=== PATIENT | female | born 1950 | race African-American/Black ===

== ENCOUNTER 2017-04-02 09:13 | Emergency (ER) | payer MEDICARE, MEDICAID ==
[~2017-04-02] VITALS: Ht 160 cm; Wt 75.0 kg
[~2017-04-02 09:13] MED LIST: CLON1TAB4 PO; FERR-63; IMIT50 PO; LOSA1TAB33 PO; PANT40TA4 PO; PERP8TAB6 PO; SIMV20TA6 PO; TRAZ-132 PO; VERA240C2 PO
[2017-04-02 09:18] VITALS: BP 144/65
[2017-04-02] MEDS ORDERED: TRAZ-132 PO (09:28)
[2017-04-02] MEDS ORDERED: BENZ2TAB7 PO (09:28)
[2017-04-02] MEDS ORDERED: MONT10TA24 PO (09:28)
[2017-04-02] MEDS ORDERED: LORA10TA7 PO (09:28)
[2017-04-02] MEDS ORDERED: PERP8TAB6 PO (09:28)
[2017-04-02] MEDS ORDERED: SIMV20TA6 PO (09:28)
[2017-04-02] MEDS ORDERED: VERA240C2 PO (09:28)
[2017-04-02] MEDS ORDERED: LOSA100T14 PO (09:28)
[2017-04-02] MEDS ORDERED: CLON1TAB4 PO (09:28)
[2017-04-02] MEDS ORDERED: PANT40TA4 PO (09:28)
[2017-04-02] MEDS ORDERED: ALBU2.5V13 IH (09:28)
== END 2017-04-02 10:41 | disposition home or self-care (01) ==
LOC: ER 09:41
DX: H61.21 Impacted cerumen, right ear (principal); I10 Essential (primary) hypertension; E78.00 Pure hypercholesterolemia, unspecified; G43.909 Migraine, unspecified, not intractable, without status migrainosus
CPT/HCPCS: 69210; 99284

== ENCOUNTER 2020-10-23 14:05 | Emergency (ER) | payer MEDICAID, MEDICARE ==
[~2020-10-23] VITALS: Ht 160 cm; Wt 73.0 kg
[~2020-10-23 14:05] MED LIST changes: +ALBU2.5V13 IH; +BENZ2TAB7 PO; +CLON1TAB12 PO; -CLON1TAB4 PO; +LORA10TA7 PO; +LOSA100T32 PO; -LOSA1TAB33 PO; +LOSA1TAB40 PO; +MONT10TA32 PO; -PANT40TA4 PO; +PANT40TA51 PO; +SIMV-43 PO; -SIMV20TA6 PO; -TRAZ-132 PO; +TRAZ-252 PO
[2020-10-23] MEDS ORDERED: IBUP-2029 MT (15:51)
[2020-10-23] MEDS ORDERED: IBUPROFEN 600MG TABLET PO ONE (16:00)
[2020-10-23 16:05] VITALS: BP 171/93
== END 2020-10-23 16:13 | disposition home or self-care (01) ==
LOC: ER 14:05
DX: S90.31XA Contusion of right foot, initial encounter (principal); I10 Essential (primary) hypertension; E78.00 Pure hypercholesterolemia, unspecified; G43.909 Migraine, unspecified, not intractable, without status migrainosus; G62.9 Polyneuropathy, unspecified; Z87.19 Personal history of other diseases of the digestive system; Z90.49 Acquired absence of other specified parts of digestive tract; Z90.710 Acquired absence of both cervix and uterus; W01.0XXA Fall on same level from slipping, tripping and stumbling without subsequent striking against object, initial encounter; Y93.89 Activity, other specified; Y92.018 Other place in single-family (private) house as the place of occurrence of the external cause
CPT/HCPCS: 73630; 99283

== ENCOUNTER 2021-04-08 13:04 | Emergency (ER) | payer MEDICARE ==
[~2021-04-08] VITALS: Ht 160 cm; Wt 71.0 kg
[~2021-04-08 13:04] MED LIST changes: +IBUP-2029 MT
[2021-04-08 14:52] LABS: BASOPHILS % 0.6 % (0.0-2.0); EOSINOPHILS % 3.2 % (0.0-5.0); HEMATOCRIT. 37.7 % (36.0-48.0); HEMOGLOBIN. 12.4 g/dL (12.0-16.0); LYMPHOCYTES % 29.3 % (20.0-50.0); MEAN CORPUSCULAR HEMOGLOBIN 27.8 pg (28.0-32.0); MEAN CORPUSCULAR VOLUME 84.6 fL (81.0-99.0); MEAN PLATELET VOLUME 7.5 fl (7.4-10.4); MONOCYTES % 5.3 % (2.0-8.0); NEUTROPHILS % 61.6 % (40.0-76.0); PLATELET 266 x1000/uL (130-400); RED BLOOD CELL COUNT 4.46 mill/uL (4.2-5.4); RED CELL DISTRIBUTION WIDTH 16.2 % (11.6-14.6)
[2021-04-08 14:55] LABS: CHLORIDE 104 mEq/L (98-107)
[2021-04-08] MEDS ORDERED: CYCLOBENZAPRINE 10MG TABLET PO ONE (16:15)
[2021-04-08] MEDS ORDERED: MORPHINE SULFATE 4 MG/ML CPJ (NOT FOR IM USE) IV NR (18:30)
[2021-04-08] MEDS ORDERED: SODIUM CHLORIDE 0.9% 1,000 ML IV ONE (18:30)
[2021-04-08] MEDS ORDERED: HYDR-4001 MT (19:10)
[2021-04-08 19:15] VITALS: BP 154/78
[2021-04-08] MEDS ORDERED: MORPHINE SULFATE 2 MG/ML CPJ (NOT FOR IM USE) IV NR (19:15)
== END 2021-04-08 19:30 | disposition home or self-care (01) ==
LOC: ER 13:04
DX: M75.02 Adhesive capsulitis of left shoulder (principal); M25.512 Pain in left shoulder; E78.00 Pure hypercholesterolemia, unspecified; I10 Essential (primary) hypertension; Z90.49 Acquired absence of other specified parts of digestive tract; Z98.890 Other specified postprocedural states; Z79.899 Other long term (current) drug therapy
CPT/HCPCS: 36415; 73030; 73060; 73090; 80053; 84484; 85025; 93005; 93971; 96374; 99285; J2270; A4565

== ENCOUNTER 2024-03-28 17:48 | Emergency (ER) | payer MEDICARE, MEDICAID ==
[~2024-03-28] VITALS: Ht 160 cm; Wt 68.0 kg
[~2024-03-28 17:48] MED LIST changes: +BENZ2TAB65 PO; -BENZ2TAB7 PO; +HYDR-4001 MT; -LOSA100T32 PO; +LOSA100T33 PO; +MONT-39 PO; -MONT10TA32 PO
[2024-03-28 18:00] VITALS: O2SAT 96
[2024-03-28] MEDS: ACETAMINOPHEN 325MG TABLET PO ONE (19:38)
[2024-03-28] MEDS ORDERED: TOPUD MT (20:28)
[2024-03-28 20:51] VITALS: BP 159/62; PULSE 88; RESP 18; TEMP 36.55848; O2SAT 97
== END 2024-03-28 20:49 | disposition home or self-care (01) ==
LOC: ER 17:48
DX: M17.11 Unilateral primary osteoarthritis, right knee (principal); I10 Essential (primary) hypertension; E78.00 Pure hypercholesterolemia, unspecified; Z88.6 Allergy status to analgesic agent
CPT/HCPCS: 73560; 93971; 99284

== ENCOUNTER 2024-10-22 20:00 | Emergency (ER) | payer MEDICARE, MEDICAID ==
[~2024-10-22] VITALS: Ht 167.6 cm; Wt 65.0 kg
[~2024-10-22 20:00] MED LIST changes: +TOPUD MT
[2024-10-22 20:19] VITALS: TEMP 36.9
[2024-10-22] MEDS: KETOROLAC 30MG/ML VIAL IM ONE (21:52)
[2024-10-22] MEDS: ACETAMINOPHEN 325MG TABLET PO ONE (21:52)
[2024-10-22] MEDS: EPINEPHRINE 1:1000 1 MG/ML AMP IM ONE (23:46)
[2024-10-23] MEDS: METHYLPREDNISOLONE SOD SUCC 125MG/2ML (ACT-O-VIAL) IV ONE (00:03)
[2024-10-23 00:46] VITALS: PULSE 84; RESP 18; O2SAT 99
[2024-10-23] MEDS: IPRATROPIUM BROMIDE (0.02%) 0.5MG/2.5ML NEB HHN STA (00:46)
[2024-10-23] MEDS: ALBUTEROL (0.083%) 2.5MG/3ML NEB HHN STA (00:47)
[2024-10-23] MEDS: HYDROCODONE/ACETAMINOPHEN 5/325MG TABLET PO ONE (03:53)
[2024-10-23] MEDS ORDERED: ACET-2708 MT (04:00)
[2024-10-23 05:21] VITALS: BP 152/89; PULSE 97; RESP 13; O2SAT 99
== END 2024-10-23 05:29 | disposition home or self-care (01) ==
LOC: ER 20:00
DX: M25.561 Pain in right knee (principal); M25.562 Pain in left knee; T78.2XXA Anaphylactic shock, unspecified, initial encounter; T50.905A Adverse effect of unspecified drugs, medicaments and biological substances, initial encounter; R06.2 Wheezing; E78.00 Pure hypercholesterolemia, unspecified; I10 Essential (primary) hypertension; Z90.710 Acquired absence of both cervix and uterus; Z79.899 Other long term (current) drug therapy; Z88.6 Allergy status to analgesic agent; Y92.89 Other specified places as the place of occurrence of the external cause
CPT/HCPCS: 99291; 96374; 29505; 73562; 96372; 94640; J1885; J2919; J3490; 94070

== ENCOUNTER 2025-02-07 14:40 | Inpatient (IN) | payer MEDICARE, MEDICAID ==
[~2025-02-07] VITALS: Ht 165.1 cm; Wt 66.2 kg
[~2025-02-07 14:40] MED LIST changes: +ACET-2708 MT; +IBUP-1455 MT; -IBUP-2029 MT
[2025-02-07] MEDS ORDERED: DEXAMETHASONE 10 MG/ML VIAL IV ONE (15:00)
[2025-02-07] MEDS ORDERED: ALBUTEROL (0.083%) 2.5MG/3ML NEB HHN SCH ×2 (15:00→17:30)
[2025-02-07] MEDS ORDERED: IPRATROPIUM BROMIDE (0.02%) 0.5MG/2.5ML NEB HHN SCH ×2 (15:00→17:30)
[2025-02-07 15:04] LABS: BASOPHILS % 0.9 % (0.0-2.0); EOSINOPHILS % 6.4 % (0.0-5.0); HEMATOCRIT. 36.3 % (36.0-48.0); HEMOGLOBIN. 12.3 g/dL (12.0-16.0); LYMPHOCYTES % 32.9 % (20.0-50.0); MEAN PLATELET VOLUME 7.7 fl (7.4-10.4); MONOCYTES % 4.9 % (2.0-8.0); NEUTROPHILS % 54.9 % (40.0-76.0); PLATELET 207 x1000/uL (130-400); RED BLOOD CELL COUNT 4.29 mill/uL (4.2-5.4); RED CELL DISTRIBUTION WIDTH 14.6 % (11.6-14.6)
[2025-02-07 15:23] LABS: CREATININE 1.8 mg/dL (0.6-1.0)
[2025-02-07 15:24] LABS: UREA NITROGEN BLOOD 12 mg/dL (9-23)
[2025-02-07 15:25] LABS: ASPARTATE AMINOTRANSFERASE 15 IU/L (<34); BILIRUBIN DIRECT 0.1 mg/dL (<=3.0)
[2025-02-07 15:26] LABS: BILIRUBIN TOTAL 0.5 mg/dL (0.1-1.0); PROTEIN TOTAL 6.6 g/dL (6.0-8.3)
[2025-02-07 15:29] LABS: TROPONIN I HIGH SENSITIVITY 52 ng/L (3.0-34)
[2025-02-07] MEDS: MAGNESIUM 2 G PREMIX 50 ML IV ONE (15:38)
[2025-02-07 15:47] LABS: BG BASE EXCESS -0.5 mmol/L (-2.0-3.0); BG CARBOXYHEMOGLOBIN 0.3 % (0.5-1.5); BG DEOXYHEMOGLOBIN 0.4 % (0.0-5.0); BG FLOW(L/min) 15.00 L/min; BG FRACTION INSPIRED OXYGEN 100; BG HCO3 ACT 23.9 mmol/L (21.0-28.0); BG METHEMOGLOBIN 0.1 % (0.5-1.5); BG OXYGEN SATURATION 99.6 % (94.0-98.0); BG OXYHEMOGLOBIN 99.2 % (94.0-98.0); BG PCO2 38.8 mmHg (32.0-45.0); BG PH 7.408 (7.350-7.450); BG PO2 275.3 mmHg (83.0-108.0); BG SAMPLE SITE LEFT BRACHIAL; BG TOTAL HEMOGLOBIN 12.7 g/dL (12.0-16.0); BG VENT MODE MASK - NRB
[2025-02-07] MEDS ORDERED: AZITHROMYCIN 500MG/250ML 250 ML IV SCH (16:45)
[2025-02-07] MEDS ORDERED: CEFTRIAXONE 1GM/50ML 50 ML IV ONE (16:45)
[2025-02-07] MEDS ORDERED: IPRATROPIUM/ALBUTEROL 0.5-3(2.5)MG/3ML NEB HHN PRN (17:15)
[2025-02-07] MEDS ORDERED: MAGNESIUM/ALUMINUM HYDROXIDE/SIMETHICONE 30ML UDC PO PRN (17:15)
[2025-02-07] MEDS ORDERED: ACETAMINOPHEN 325MG TABLET PO PRN (17:15)
[2025-02-07] MEDS ORDERED: ENOXAPARIN 40MG/0.4ML SYR SUBCUT SCH (17:15)
[2025-02-07] MEDS: GUAIFENESIN 200MG/10ML SUGAR FREE UDC PO PRN (17:41)
[2025-02-07] MEDS: KCL 20MEQ/100ML PREMIX 100 ML IV SCH (17:41)
[2025-02-07] MEDS: DEXAMETHASONE 10 MG/ML VIAL IV NR (17:42)
[2025-02-07] MEDS: ENOXAPARIN 30MG/0.3ML SYR SUBCUT SCH (17:43)
[2025-02-07 19:30] VITALS: BP 178/92; PULSE 81; RESP 18; TEMP 36.4; O2SAT 100
[2025-02-07 19:51] LABS: TROPONIN I HIGH SENSITIVITY 51 ng/L (3.0-34)
[2025-02-07 20:00] VITALS: BP 163/71; PULSE 69; RESP 18; TEMP 36.5; O2SAT 98
[2025-02-07 21:00] VITALS: BP 178/92; PULSE 81; RESP 18; TEMP 36.418
[2025-02-07] MEDS ORDERED: MEDICATION NOT ON FORMULARY EA (Trazodone Hcl 200 MG) PO SCH (21:00)
[2025-02-07] MEDS: ATORVASTATIN CALCIUM 10MG TABLET PO SCH (21:14)
[2025-02-07] MEDS: TRAZODONE HCL 50MG TABLET PO SCH (21:14)
[2025-02-07] MEDS: METHYLPREDNISOLONE SOD SUCC 40MG/ML (ACT-O-VIAL) IV SCH (21:15)
[2025-02-07] MEDS: CEFTRIAXONE 1GM/50ML 50 ML IV NR (21:15)
[2025-02-07] MEDS: CLONIDINE 0.1MG TABLET PO PRN (21:20)
[2025-02-07] MEDS: IPRATROPIUM/ALBUTEROL 0.5-3(2.5)MG/3ML NEB HHN SCH (21:50)
[2025-02-07 21:53] VITALS: PULSE 88; RESP 22; O2SAT 98
[2025-02-07] MEDS ORDERED: NALOXONE HCL 0.4MG/ML VIAL IV PRN (22:00)
[2025-02-07] MEDS: ONDANSETRON HCL 4MG/2ML INJ IV PRN (22:10)
[2025-02-07] MEDS: AZITHROMYCIN 500MG/250ML 250 ML IV SCH (22:27)
[2025-02-07] MEDS: HYDROCODONE/ACETAMINOPHEN 5/325MG TABLET PO PRN (22:57)
[2025-02-08] VITALS (12 sets, daily range): BP systolic 115–170; BP diastolic 73–88; PULSE 85–114; RESP 16–21; TEMP 36.4–36.9; O2SAT 97–100
[2025-02-08] MEDS: PANTOPRAZOLE 40MG DR TABLET PO SCH (05:53)
[2025-02-08 06:21] LABS: CREATININE 1.6 mg/dL (0.6-1.0)
[2025-02-08 06:22] LABS: TROPONIN I HIGH SENSITIVITY 28 ng/L (3.0-34); UREA NITROGEN BLOOD 14 mg/dL (9-23)
[2025-02-08 06:23] LABS: ASPARTATE AMINOTRANSFERASE 12 IU/L (<34)
[2025-02-08 06:24] LABS: BILIRUBIN TOTAL 0.3 mg/dL (0.1-1.0); PHOSPHORUS 1.5 mg/dL (2.5-4.9); PROTEIN TOTAL 6.7 g/dL (6.0-8.3)
[2025-02-08 06:31] LABS: BASOPHILS % 0.2 % (0.0-2.0); EOSINOPHILS % 0.5 % (0.0-5.0); HEMATOCRIT. 37.6 % (36.0-48.0); HEMOGLOBIN. 12.8 g/dL (12.0-16.0); LYMPHOCYTES % 8.9 % (20.0-50.0); MEAN PLATELET VOLUME 8.5 fl (7.4-10.4); MONOCYTES % 0.7 % (2.0-8.0); NEUTROPHILS % 89.7 % (40.0-76.0); PLATELET 182 x1000/uL (130-400); RED BLOOD CELL COUNT 4.48 mill/uL (4.2-5.4); RED CELL DISTRIBUTION WIDTH 14.6 % (11.6-14.6)
[2025-02-08] MEDS: DILTIAZEM HCL 120MG CAPSULE ER 24HR PO SCH (08:21)
[2025-02-08] MEDS: LOSARTAN 100 MG TABLET PO SCH (08:21)
[2025-02-08] MEDS: MONTELUKAST SODIUM 10MG TABLET PO SCH (08:22)
[2025-02-08] MEDS ORDERED: MEDICATION NOT ON FORMULARY EA (Verapamil Hcl (Verapamil Er) 240 MG) PO SCH (09:00)
[2025-02-08] MEDS: MAGNESIUM 1 G PREMIX 100 ML IV NR (10:13)
[2025-02-08] MEDS: POTASSIUM PHOSPHATE 20 MMOL in DEXT 5% WATER 243.3333 ML IV NR (12:30)
[2025-02-08] MEDS: ACETAMINOPHEN 325MG TABLET PO PRN (16:00)
[2025-02-08] MEDS: CEFTRIAXONE 1GM/50ML 50 ML IV NR (17:54)
[2025-02-09] VITALS (12 sets, daily range): BP systolic 144–167; BP diastolic 71–83; PULSE 82–96; RESP 16–18; TEMP 36.4–37.3; O2SAT 95–100
[2025-02-09 01:39] LABS: TROPONIN I HIGH SENSITIVITY 51 ng/L (3.0-34)
[2025-02-09 16:42] LABS: INFLUENZA TYPE A Presumptive Negative (Pres. Neg.)
[2025-02-09 16:43] LABS: INFLUENZA TYPE B Presumptive Negative (Pres. Neg.)
[2025-02-09 16:44] LABS: RESPIRATORY SYNCYTIAL VIRUS Not Detected (Not Detectd)
[2025-02-10] VITALS (11 sets, daily range): BP systolic 110–196; BP diastolic 61–94; PULSE 61–95; RESP 15–20; TEMP 36.1–36.8; O2SAT 94–100
[2025-02-10] MEDS: AZITHROMYCIN 500MG/250ML 250 ML IV SCH (02:53)
[2025-02-10] MEDS: CEFTRIAXONE 1GM/50ML 50 ML IV SCH (03:54)
[2025-02-10 06:53] LABS: BASOPHILS % 0.1 % (0.0-2.0); EOSINOPHILS % 0.1 % (0.0-5.0); HEMATOCRIT. 42.1 % (36.0-48.0); HEMOGLOBIN. 13.8 g/dL (12.0-16.0); LYMPHOCYTES % 17.4 % (20.0-50.0); MEAN PLATELET VOLUME 8.4 fl (7.4-10.4); MONOCYTES % 6.3 % (2.0-8.0); NEUTROPHILS % 76.1 % (40.0-76.0); PLATELET 188 x1000/uL (130-400); RED BLOOD CELL COUNT 4.89 mill/uL (4.2-5.4); RED CELL DISTRIBUTION WIDTH 15.0 % (11.6-14.6)
[2025-02-10 07:14] LABS: CREATININE 1.4 mg/dL (0.6-1.0); UREA NITROGEN BLOOD 16.0 mg/dL (9-23)
[2025-02-10] MEDS: FAMOTIDINE 20MG TABLET PO SCH (09:44)
[2025-02-11] VITALS (10 sets, daily range): BP systolic 125–154; BP diastolic 59–77; PULSE 83–92; RESP 16–18; TEMP 36.2–36.4; O2SAT 94–98
[2025-02-11 06:40] LABS: BASOPHILS % 0.3 % (0.0-2.0); EOSINOPHILS % 1.3 % (0.0-5.0); HEMATOCRIT. 37.6 % (36.0-48.0); HEMOGLOBIN. 12.3 g/dL (12.0-16.0); LYMPHOCYTES % 25.4 % (20.0-50.0); MEAN PLATELET VOLUME 8.1 fl (7.4-10.4); MONOCYTES % 6.5 % (2.0-8.0); NEUTROPHILS % 66.5 % (40.0-76.0); PLATELET 213 x1000/uL (130-400); RED BLOOD CELL COUNT 4.39 mill/uL (4.2-5.4); RED CELL DISTRIBUTION WIDTH 15.4 % (11.6-14.6)
[2025-02-11 07:23] LABS: CREATININE 1.4 mg/dL (0.6-1.0); UREA NITROGEN BLOOD 17.0 mg/dL (9-23)
[2025-02-11] MEDS ORDERED: AZIT500T8 MT (11:07)
[2025-02-11] MEDS ORDERED: AMOX1TAB16 MT (16:15)
[2025-02-12] MEDS ORDERED: FAMOTIDINE 20MG TABLET PO SCH (09:00)
== END 2025-02-11 19:00 | disposition home health service (06) | DRG 189 ==
LOC: ER 14:45 → 5WST 16:42 → EDBEDREQ 16:54 → EDBEDREQTM 16:54 → ENRESERV 18:27
PROVIDERS: ADMIT Family Medicine Adult Medicine; ATTEND Family Medicine Adult Medicine
DX: J96.01 Acute respiratory failure with hypoxia (principal); J18.9 Pneumonia, unspecified organism; J44.1 Chronic obstructive pulmonary disease with (acute) exacerbation; E87.1 Hypo-osmolality and hyponatremia; N17.9 Acute kidney failure, unspecified; J44.0 Chronic obstructive pulmonary disease with (acute) lower respiratory infection; Z20.822 Contact with and (suspected) exposure to COVID-19; E87.6 Hypokalemia; E83.42 Hypomagnesemia; D72.10 Eosinophilia, unspecified; N18.9 Chronic kidney disease, unspecified; I12.9 Hypertensive chronic kidney disease with stage 1 through stage 4 chronic kidney disease, or unspecified chronic kidney disease; T38.0X5A Adverse effect of glucocorticoids and synthetic analogues, initial encounter; E78.00 Pure hypercholesterolemia, unspecified; Z90.710 Acquired absence of both cervix and uterus; Z88.6 Allergy status to analgesic agent; Y92.89 Other specified places as the place of occurrence of the external cause
CPT/HCPCS: 36415; 36600; 71045; 80048; 80053; 80076; 82375; 82805; 83735; 83880; 84100; 84145; 84484; 85025; 87420; 87426; 87804; 93005; 93970; 94070; 94640; 94664; 96374; 97162; 97166; 97530; 98960; 99285; J0456; J0696; J1100; J1650; J2405; J2919; J3475; J3480; J3490; J7060